=== PATIENT | female | born 2005 | race Two or more races ===

== ENCOUNTER 2025-05-14 16:46 | Emergency (ER) | payer SELFPAY ==
[2025-05-14 16:55] VITALS: BP 166/103
[2025-05-14 19:58] VITALS: BMI 34.2
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
[2025-05-14 22:15] VITALS: BP 129/79
== END 2025-05-14 22:34 | disposition home or self-care (01) ==
LOC: EMR 16:46
PROVIDERS: EMERGENCY PHYSICIAN Emergency Medicine; FAMILY PHYSICIAN Internal Medicine
DX: S09.90XA Unspecified injury of head, initial encounter (principal); S50.812A Abrasion of left forearm, initial encounter; R51.9 Headache, unspecified; H92.02 Otalgia, left ear; H91.92 Unspecified hearing loss, left ear; V47.0XXA Car driver injured in collision with fixed or stationary object in nontraffic accident, initial encounter; W22.11XA Striking against or struck by driver side automobile airbag, initial encounter; Y92.410 Unspecified street and highway as the place of occurrence of the external cause; R03.0 Elevated blood-pressure reading, without diagnosis of hypertension; L53.8 Other specified erythematous conditions
CPT/HCPCS: 99284; 70450